=== PATIENT | male | born 1990 | race Hispanic/Latino ===

== ENCOUNTER 2017-09-27 16:46 | Emergency (ER) | payer OTHER ==
--- NOTE | 2017-09-27 17:14 | ER ---
Nurse's Notes [facility] Name: Aleksandr Lee Age: 27 yrs Sex: Male : 1990 Arrival Date: 09/27/2017 Time: 16:51 Bed 10 Private MD: Diagnosis: Periapical abscess without sinus;Pulpitis Presentation: 09/27 16:53 Presenting complaint: Patient states: Left lower molar pain 10/10. Transition of care: hb patient was not received from another setting of care. Onset of symptoms was September 27, 2017. Care prior to arrival: Medication(s) given: Motrin, at 1300 today. 16:53 Method Of Arrival: Ambulatory 16:53 Acuity: SUNNY 4 hb Historical: - Allergies: 16:55 No Known Allergies; hb - Home Meds: 16:55 None [Active]; hb - PMHx: 16:55 None; hb - PSHx: 16:55 None; hb - Immunization history:: Adult Immunizations up to date. - Social history:: Smoking status: Patient uses tobacco products, smokes one-half pack cigarettes per day. Screenin:12 Abuse screen: Denies threats or abuse. Denies injuries from another. Nutritional aj screening: No deficits noted. Tuberculosis screening: No symptoms or risk factors identified. Fall Risk None identified. Assessment: 17:12 General: Appears in no apparent distress. uncomfortable, Behavior is calm, cooperative, aj appropriate for age. Pain: Complains of pain in lower left first molar. Neuro: Level of Consciousness is awake, alert, obeys commands, Oriented to person, place, time, situation. Respiratory: Airway is patent Respiratory effort is even, unlabored, Respiratory pattern is regular, symmetrical. EENT: Reports pain in lower left first molar. Derm: Skin is intact, is healthy with good turgor, Skin is pink, warm \T\ dry. normal. Vital Signs: 16:55 BP 126 / 82; Pulse 73; Resp 16; Temp 98.4; Pulse Ox 100% on R/A; Weight 74.84 kg; hb Height 6 ft. 1 in. (185.42 cm); Pain 10/10; 16:55 Body Mass Index 21.77 (74.84 kg, 185.42 cm) hb ED Course: 16:51 Patient arrived in ED. mr 16:55 Triage completed. hb 16:55 Arm band placed on right wrist. hb 16:57 Dany Murphy PA is PHCP. jr8 16:57 Mani Daley MD is Attending Physician. jr8 17:09 Nilda Marie, RN is Primary Nurse. aj 17:12 Patient has correct armband on for positive identification. aj 17:12 No provider procedures requiring assistance completed. Patient did not have IV access aj during this emergency room visit. Administered Medications: 17:13 Drug: Lidocaine (1 %) 5 mg Route: Infiltration; aj 17:20 Drug: morphine 4 mg Route: IM; Site: right deltoid; aj 17:39 Follow up: Response: Pain is decreased aj 17:20 Drug: Zofran 4 mg Route: PO; aj 17:39 Follow up: Response: Pain is decreased aj Outcome: 17:13 Discharge ordered by . jr8 17:38 Discharged to home ambulatory. aj 17:38 Condition: good 17:38 Discharge instructions given to patient, Instructed on discharge instructions, follow up and referral plans. medication usage, Demonstrated understanding of instructions, follow-up care, medications, Prescriptions given X 3. 17:39 Patient left the ED. aj Signatures: Nilda Marie, RN RN Elicia Cardoso mr Dany Murphy PA PA jr8 Marina Nayak, RN RN
--- NOTE | 2017-09-27 17:14 | EDPHYS ---
Physician Documentation [facility] Name: Aleksandr Lee Age: 27 yrs Sex: Male : 1990 Arrival Date: 09/27/2017 Time: 16:51 Bed 10 Private MD: ED Physician Mani Daley HPI: 09/27 17:15 This 27 yrs old Male presents to ER via Ambulatory with complaints of jr8 Toothache. 17:15 The patient presents with broken tooth/teeth, pain. The problem is located in the lower jr8 left first molar. Onset: The symptoms/episode began/occurred acutely, 2 day(s) ago. Duration: The symptoms are continuous. Modifying factors: The symptoms are alleviated by nothing, the symptoms are aggravated by air, talking. Associated signs and symptoms: The patient has no apparent associated signs or symptoms. Severity of symptoms: At their worst the symptoms were moderate, in the emergency department the symptoms are unchanged. The patient has not experienced similar symptoms in the past. The patient has not recently seen a physician. Historical: - Allergies: 16:55 No Known Allergies; hb - Home Meds: 16:55 None [Active]; hb - PMHx: 16:55 None; hb - PSHx: 16:55 None; hb - Immunization history:: Adult Immunizations up to date. - Social history:: Smoking status: Patient uses tobacco products, smokes one-half pack cigarettes per day. ROS: 17:15 Eyes: Negative for injury, pain, redness, and discharge, Neck: Negative for injury, jr8 pain, and swelling, Cardiovascular: Negative for chest pain, palpitations, and edema, Respiratory: Negative for shortness of breath, cough, wheezing, and pleuritic chest pain, Abdomen/GI: Negative for abdominal pain, nausea, vomiting, diarrhea, and constipation, Back: Negative for injury and pain, MS/Extremity: Negative for injury and deformity, Skin: Negative for injury, rash, and discoloration, Neuro: Negative for headache, weakness, numbness, tingling, and seizure. 17:15 ENT: Positive for dental pain. Exam: 17:15 Eyes: Pupils equal round and reactive to light, extra-ocular motions intact. Lids and jr8 lashes normal. Conjunctiva and sclera are non-icteric and not injected. Cornea within normal limits. Periorbital areas with no swelling, redness, or edema. Neck: Trachea midline, no thyromegaly or masses palpated, and no cervical lymphadenopathy. Supple, full range of motion without nuchal rigidity, or vertebral point tenderness. No Meningismus. Cardiovascular: Regular rate and rhythm with a normal S1 and S2. No gallops, murmurs, or rubs. Normal PMI, no JVD. No pulse deficits. Respiratory: Lungs have equal breath sounds bilaterally, clear to auscultation and percussion. No rales, rhonchi or wheezes noted. No increased work of breathing, no retractions or nasal flaring. Abdomen/GI: Soft, non-tender, with normal bowel sounds. No distension or tympany. No guarding or rebound. No evidence of tenderness throughout. Back: No spinal tenderness. No costovertebral tenderness. Full range of motion. Skin: Warm, dry with normal turgor. Normal color with no rashes, no lesions, and no evidence of cellulitis. MS/ Extremity: Pulses equal, no cyanosis. Neurovascular intact. Full, normal range of motion. Neuro: Awake and alert, GCS 15, oriented to person, place, time, and situation. Cranial nerves II-XII grossly intact. Motor strength 5/5 in all extremities. Sensory grossly intact. Cerebellar exam normal. Normal gait. 17:15 ENT: Exam is negative for earache, ear discharge, TM abnormalities, nasal discharge, sinus tenderness, Dental exam: pain, that is severe, Patients 1st molar decayed and exposed down to root. OTC slip filler place. Mild gum swelling surrounds region. . Vital Signs: 16:55 BP 126 / 82; Pulse 73; Resp 16; Temp 98.4; Pulse Ox 100% on R/A; Weight 74.84 kg; hb Height 6 ft. 1 in. (185.42 cm); Pain 10/10; 16:55 Body Mass Index 21.77 (74.84 kg, 185.42 cm) hb MDM: 16:57 Patient medically screened. rust 17:13 Data reviewed: vital signs, nurses notes, and as a result, I will discharge patient. jr8 Data interpreted: Pulse oximetry: on room air is 100 %. Interpretation: normal. Counseling: I had a detailed discussion with the patient and/or guardian regarding: the historical points, exam findings, and any diagnostic results supporting the discharge/admit diagnosis, the need for outpatient follow up, a dentist, to return to the emergency department if symptoms worsen or persist or if there are any questions or concerns that arise at home. Administered Medications: 17:13 Drug: Lidocaine (1 %) 5 mg Route: Infiltration; 17:20 Drug: morphine 4 mg Route: IM; Site: right deltoid; aj 17:39 Follow up: Response: Pain is decreased aj 17:20 Drug: Zofran 4 mg Route: PO; :39 Follow up: Response: Pain is decreased Disposition: 18:39 Co-signature as Attending Physician, Mani Daley MD. rn Disposition: 09/27/17 17:13 Discharged to Home. Impression: Periapical abscess without sinus, Pulpitis. - Condition is Stable. - Discharge Instructions: Dental Abscess, Dental Pain. - Prescriptions for Augmentin 875- 125 mg Oral Tablet - take 1 tablet by ORAL route every 12 hours for 10 days; 20 tablet. Ibuprofen 800 mg Oral Tablet - take 1 tablet by ORAL route every 12 hours As needed take with food; 20 tablet. Tylenol- Codeine #3 300-30 mg Oral Tablet - take 2 tablets by ORAL route every 6 hours As needed; 20 tablet. - Medication Reconciliation Form, Thank You Letter, Antibiotic Education, Prescription Opioid Use form. - Follow up: Private Physician; When: Tomorrow; Reason: Recheck today's complaints, Continuance of care, Re-evaluation by your physician. - Problem is new. - Symptoms have improved. Signatures: Nilda Marie RN RN aj Nieto, Roman, MD MD rn Roszak, Josh, PA PA jr8 Marina Nayak RN RN
[2017-09-27] MEDS ORDERED: LIDOCAINE 1% MPF 5 ML VIAL ONE (17:23)
[2017-09-27] MEDS ORDERED: MORPHINE 4 MG/ML SYR ONE (17:35)
[2017-09-27] MEDS ORDERED: ONDANSETRON 4 MG/2 ML VIAL ONE (17:35)
[2017-09-27] MEDS ORDERED: ONDANSETRON 4 MG (ODT) TAB ONE (17:36)
== END 2017-09-27 17:39 | disposition home or self-care (01) ==
LOC: ER 16:46
DX: K04.7 Periapical abscess without sinus (principal); K04.01 Reversible pulpitis; F17.210 Nicotine dependence, cigarettes, uncomplicated
CPT/HCPCS: 96372; 99283; J2405

== ENCOUNTER 2018-03-11 13:15 | Emergency (ER) | payer OTHER ==
[2018-03-11 14:29] LABS: Absolute Lymphocytes (CBC) 1.3 K/uL (0.7-4.9); Absolute Monocytes 0.8 K/uL (0.1-1.3); Absolute Neutrophil 5.6 K/uL (1.8-8.0); Basophils % 0.4 % (0-1.3); Eosinophils % 1.1 % (0-4.4); Hematocrit 41.8 % (39.6-49.0); Lymphocytes % 16.6 % (15.3-44.8); MCH 32.6 pg (27.0-35.0); MCV 95.4 fL (80-100); MPV 8.2 fL (7.6-11.3); Monocytes % 10.3 % (3.3-12.3); RBC Red Blood Cell Count 4.38 M/uL (4.33-5.43)
[2018-03-11 14:45] LABS: ALT/SGPT 22 U/L (12-78); AST/SGOT 17 U/L (15-37); Alkaline Phosphatase 66 U/L (45-117); BUN Blood Urea Nitrogen 13 mg/dL (7-18); Bicarbonate 31 mmol/L (21-32); Bilirubin Total 0.7 mg/dL (0.2-1.0); Glucose Level 124 mg/dL (74-106); Potassium 3.6 mmol/L (3.5-5.1); Protein, Total 7.6 g/dL (6.4-8.2); Sodium Level 138 mmol/L (136-145)
--- NOTE | 2018-03-11 15:08 | RAD REPORT ---
EXAM DESCRIPTION: CT - Facial Bones W Kam Mpr - 03/11/2018 2:27 pm CLINICAL HISTORY: left jaw swelling<Reason For Exam>left jaw swelling COMPARISON: No comparisons<Comparisons>No comparisons TECHNIQUE: Axial 2 millimeter thick images of the facial bones were obtained with sagittal and coron al reconstruction imaging. All CT scans are performed using dose optimization technique as appropriate and may include automated exposure control or mA/KV adjustment according to patient size. FINDINGS: Intracranial portion of the examination is unremarkable. No globe or orbital content abnor mality. Mastoid air cells are clear. Minimal mucosal thickening in the maxillary sinuses. No air-flui d levels present. Scattered areas of dental decay seen. No bone destructive process identifiable. There is significant soft tissue swelling and edema along the anterior and lateral margin of the left-side mandible. No ab scess or drainable fluid collection identifiable. A few scattered nonspecific lymph nodes are present. Parotid and submandibular glands show no suspici ous findings. IMPRESSION: Left-sided facial swelling and edema along the lateral margin left-side mandible. No abs cess or drainable fluid collection. Multiple sites of dental decay present without bone destructive process.
--- NOTE | 2018-03-11 15:36 | ER ---
Nurse's Notes [facility] Name: Aleksandr Lee Age: 27 yrs Sex: Male : 1990 Arrival Date: 03/11/2018 Time: 13:19 Bed 27 Private MD: Diagnosis: Dental Abscess Presentation: 03/11 13:21 Presenting complaint: Patient states: I have a bad tooth on the left side, been on abx la1 and norcos at home but it swelling is getting worse, dental appt on tuesday. Transition of care: patient was not received from another setting of care. Onset of symptoms was March 11, 2018. Risk Assessment: Do you want to hurt yourself or someone else? Patient reports no desire to harm self or others. Initial Sepsis Screen: Does the patient meet any 2 criteria? No. Patient's initial sepsis screen is negative. Does the patient have a suspected source of infection? No. Patient's initial sepsis screen is negative. Care prior to arrival: None. 13:21 Method Of Arrival: Ambulatory la1 13:21 Acuity: SUNNY 4 la1 Historical: - Allergies: 13:22 No Known Allergies; la1 - PMHx: 13:22 None; la1 - Immunization history:: Adult Immunizations up to date. - Social history:: Smoking status: Patient uses tobacco products, smokes one-half pack cigarettes per day. - Ebola Screening: : No symptoms or risks identified at this time. Screenin:13 Abuse screen: none noted. Nutritional screening: No deficits noted. Tuberculosis jl3 screening: No symptoms or risk factors identified. Fall Risk None identified. Assessment: 13:51 General: Appears distressed, uncomfortable, slender, well groomed, Behavior is jl3 cooperative, anxious, Reports Inflammation to L. lower jaw r/t pt reports is r/t tooth abcess. Dental donya noted to tooth in area. Pain: Complains of pain in left submandibular area, left side of neck and neck Pain currently is 10 out of 10 on a pain scale. Quality of pain is described as aching. Neuro: No deficits noted. Cardiovascular: No deficits noted. Respiratory: No deficits noted. GI: No deficits noted. : No deficits noted. EENT: Reports pain in left jaw, left cheek and left mandible. Derm: Inflammation to lower L. jaw. Vital Signs: 13:22 BP 128 / 86; Pulse 97; Resp 16; Temp 98.7(TE); Pulse Ox 100% on R/A; Weight 76.2 kg; la1 14:45 BP 122 / 82; Pulse 92; Resp 18; Pulse Ox 100% ; Pain 8/10; jl3 ED Course: 13:19 Patient arrived in ED. mr 13:22 Triage completed. la1 13:23 Arm band placed on left wrist. la1 13:43 Byron Stephenson, RN is Primary Nurse. jl3 13:43 Aftab Lawrence PA is PHCP. jmm 13:43 Kevin Kam MD is Attending Physician. jmm 14:26 CMP Sent. jl3 14:26 CBC with Diff Sent. jl3 14:27 CT Facial Bones W/ Con \T\ Mpr In Process Unspecified. EDMS 14:27 CT completed. Patient tolerated procedure well. Patient moved back from CT. la2 15:32 David Walton DDS is Referral Physician. jm 16:13 No provider procedures requiring assistance completed. IV discontinued, intact, jl3 bleeding controlled, No redness/swelling at site. Pressure dressing applied. 16:14 Patient has correct armband on for positive identification. jl3 Administered Medications: No medications were administered Outcome: 15:34 Discharge ordered by MD. jm 16:14 Discharged to home ambulatory, with family. jl3 16:14 Condition: stable 16:14 Discharge instructions given to patient, family. 16:15 Patient left the ED. jl3 Signatures: Dispatcher [employer] EDMS Aftab Lawrence PA PA [facility] Elicia Olivares Lee RN RN la1 Byron Stephenson, RN RN jl3 Radha Romo la
--- NOTE | 2018-03-11 15:36 | EDPHYS ---
Physician Documentation [facility] Name: Aleksandr Lee Age: 27 yrs Sex: Male : 1990 Arrival Date: 03/11/2018 Time: 13:19 Bed 27 Private MD: ED Physician Kevin Kam HPI: 03/11 13:50 This 27 yrs old Male presents to ER via Ambulatory with complaints of Abscess jmm tooth. 13:50 The patient presents with pain, swelling. Onset: The symptoms/episode began/occurred jmm gradually, 1 day(s) ago. Duration: The symptoms are continuous. This is a 27 year old male with no chronic medical conditions that presents to the ED with left sided jaw pain which he awoke to increased swelling to his left jaw. Patient denies fever. Patient is currently on day two of clindamycin. . Historical: - Allergies: 13:22 No Known Allergies; la1 - PMHx: 13:22 None; la1 - Immunization history:: Adult Immunizations up to date. - Social history:: Smoking status: Patient uses tobacco products, smokes one-half pack cigarettes per day. - Ebola Screening: : No symptoms or risks identified at this time. ROS: 13:25 Constitutional: Negative for fever, chills, and weight loss, Cardiovascular: Negative jmm for chest pain, palpitations, and edema, Respiratory: Negative for shortness of breath, cough, wheezing, and pleuritic chest pain. 13:25 ENT: Positive for dental pain. 13:25 All other systems are negative. Exam: 13:25 Constitutional: This is a well developed, well nourished patient who is awake, alert, jmm and in no acute distress. 13:25 Constitutional: The patient appears in no acute distress, alert, awake. 13:25 Head/face: Noted is swelling, that is moderate, of the left jaw. 13:25 ENT: Posterior pharynx: is normal, Dental exam: dental caries, that is moderate, specifically in the lower left first molar (#19). 13:25 Neck: ROM/movement: is normal. 13:25 Respiratory: the patient does not display signs of respiratory distress, Respirations: normal, Breath sounds: are clear throughout. 13:25 Musculoskeletal/extremity: ROM: intact in all extremities. 13:25 Skin: Appearance: Color: normal in color. 13:25 Neuro: Orientation: is normal, Mentation: is normal, Memory: is normal, Gait: is steady. Vital Signs: 13:22 BP 128 / 86; Pulse 97; Resp 16; Temp 98.7(TE); Pulse Ox 100% on R/A; Weight 76.2 kg; la1 14:45 BP 122 / 82; Pulse 92; Resp 18; Pulse Ox 100% ; Pain 8/10; jl3 MDM: 13:49 Patient medically screened. [facility] 15:26 Data reviewed: vital signs, nurses notes. [facility] 15:30 Data reviewed: radiologic studies, CT scan. [facility] 15:30 Counseling: I had a detailed discussion with the patient and/or guardian regarding: the jm historical points, exam findings, and any diagnostic results supporting the discharge/admit diagnosis, lab results, radiology results, to return to the emergency department if symptoms worsen or persist or if there are any questions or concerns that arise at home. 15:30 ED course: Patient is alert and non toxic in appearance in the ED. CT imaging reveals jmm no abscess. Patient given follow up information for OMFS with strict return precautions. Patient and family understood and agree with the plan of care. . 03/11 13:49 Order name: CBC with Diff; Complete Time: 14:49 [facility] 03/11 13:49 Order name: CMP; Complete Time: 14:49 [facility] 03/11 13:49 Order name: Saline Lock; Complete Time: 14:25 [facility] 03/11 13:49 Order name: CT Facial Bones W/ Con \T\ Mpr; Complete Time: 15:12 jm Administered Medications: No medications were administered Disposition: 17:24 Co-signature as Attending Physician, Kevin Kam MD I agree with the assessment and kdr plan of care. Disposition: 03/11/18 15:34 Discharged to Home. Impression: Dental Abscess. - Condition is Stable. - Discharge Instructions: Dental Abscess. - Prescriptions for Peridex 0.12 % Mucous Membrane mouthwash - place 15 milliliter by MUCOUS MEMBRANE route 2 times per day after brushing teeth, swish in mouth for 30 seconds then spit out; 1 bottle. - Medication Reconciliation Form, Thank You Letter, Antibiotic Education, Prescription Opioid Use form. - Follow up: David Walton DDS; When: As needed; Reason: Recheck today's complaints, Continuance of care, Re-evaluation by your physician. - Notes: Continue clindamycin. Please return to the ED if you develop increased swelling, shortness of breath, fever, or any other concerning symptoms. Signatures: Dispatcher [employer] EDMS Kevin Kam MD MD kdr Mickail, Joel, PA PA Dany Zamudio RN RN la1 Byron Stephenson RN RN jl3 Corrections: (The following items were deleted from the chart) 16:15 15:34 03/11/2018 15:34 Discharged to Home. Impression: Dental Abscess. Condition is jl3 Stable. Forms are Medication Reconciliation Form, Thank You Letter, Antibiotic Education, Prescription Opioid Use. Follow up: David Walton; When: As needed; Reason: Recheck today's complaints, Continuance of care, Re-evaluation by your physician. [facility] 19:17 13:50 This is a 27 year old male with no chronic medical conditions that presents to [facility] the ED with left sided jaw pain which he awoke to [facility] . [facility]
== END 2018-03-11 16:15 | disposition home or self-care (01) ==
LOC: ER 13:15
DX: K04.7 Periapical abscess without sinus (principal); F17.210 Nicotine dependence, cigarettes, uncomplicated
CPT/HCPCS: 36415; 70487; 76377; 80053; 85025; 99284; Q9967